=== PATIENT | male | born 1940 | race Caucasian/White ===

== ENCOUNTER 2021-08-16 07:13 | Outpatient (CLI) | payer OTHER, SELFPAY ==
--- NOTE | 2021-08-16 | ECHO_ITS ---
Patient Info Name: Sanket Wick Age: 80 years : 1940 Gender: Male Ht: 74 in Wt: 200 lbs BSA: 2.18 m2 HR: 52 bpm BP: 147 / 90 mmHg Exam Date: 08/16/2021 8:16 AM [facility] Patient Status: Outpatient Admit Date: 08/16/2021 Staff Ordering Physician: Dougie, Marquis Hall MD Correctional Medicine Physician: RASHID Attending Provider: Dougie, Marquis Hall MD Referring Physician: Dougie CALERO; Exam Type: CA echo doppler color flow Study Info Indications I35.0 - Nonrheumatic aortic (valve) stenosis Complete two-dimensional, color flow and Doppler transthoracic echocardiogram is performed. Summary 1. Complete two-dimensional, color flow and Doppler transthoracic echocardiogram is performed. 2. Borderline LV enlargement, moderate LVH, normal LV systolic function, ejection fraction calculated at 60%. Grade 1 diastolic dysfunction. Mild left atrial enlargement. Dense posterior mitral annular calcification, trivial MR, mild mitral stenosis. Calcified aortic valve with restricted leaflet mobility. Severe aortic stenosis with calculated aortic valve area 0.8 cm2; maximum velocity 4 m/sec, peak gradient 66 mmHg, mean gradient 36 mmHg. Unable to assess RVSP due to inadequate TR jet. Sinus bradycardia. Left Ventricle Left ventricular chamber dimension is normal. Left ventricular systolic function is normal, estimated at 55-60%. There is moderately increased left ventricular wall thickness. The left ventricular diastolic function is grade I diastolic dysfunction. Right Ventricle Right ventricular chamber dimension is normal. Right ventricular systolic function is normal. Left Atria Left atrial chamber dimension is mildly enlarged. Right Atria Right atrial chamber dimension is normal. Aortic Valve There is severe aortic valve stenosis with a peak velocity of 417 cm/s, mean gradient of 36 mmHg, and aortic valve area of 0.7 cm2. There is moderate aortic valve calcification. Pulmonic Valve The pulmonic valve is normal. Mitral Valve There is mild mitral valve stenosis. There is trace mitral valve regurgitation. The mitral valve annulus is moderately calcified. Tricuspid Valve The tricuspid valve leaflets are normal. There is trace tricuspid valve regurgitation. Pericardium/Pleural The pericardium appears normal. Inferior Vena Cava Dilated inferior vena cava with >50% collapse upon inspiration consistent with normal right atrial pressure, 10 mmHg. Aorta The aortic root size at the sinus of Valsalva is not well visualized. Left Ventricular Outflow Tract Name Value Normal LVOT 2D LVOT Diameter 1.8 cm LVOT Doppler LVOT Peak Gradient 7 mmHg LVOT Mean Gradient 2 mmHg LVOT VTI 29 cm LVOT VTI/AV VTI Ratio 0.3 LVOT Stroke Volume 76 ml LVOT CO 10.9 l/min LVOT CI 5.0 l/min/m2 Mitral Valve Name
== END 2021-08-16 07:14 | disposition home or self-care (01) ==
LOC: ANHCARD 07:15
PROVIDERS: PCP Internal Medicine; Visit Provider Internal Medicine
DX: I35.0 Nonrheumatic aortic (valve) stenosis (principal); I05.0 Rheumatic mitral stenosis
CPT/HCPCS: 93306

== ENCOUNTER 2023-04-26 15:56 | Emergency (ER) | payer OTHER, SELFPAY ==
[2023-04-26 15:59] VITALS: BP 118/69; PULSE 69; RESP 18; TEMP 36.5; O2SAT 100
[2023-04-26 16:46] LABS: Eosinophils Percent Auto 0.2 % (0-4.4); Hemoglobin 8.9 g/dL (14.0-18.0); Immature Granulocyte Absolute 0.07 K/mm3 (0.00-0.031); Immature Granulocyte Percent A 1.2 % (0-0.5); Immature Platelet Fraction Pct 12.4 % (0.9-11.2); Lymphocytes Absolute Auto 1.65 K/mm3 (0.9-3.2); Lymphocytes Percent Auto 28.5 % (18.3-44.2); Mean Corpuscular HGB Conc 34.2 g/dl (32-36); Mean Corpuscular Hemoglobin 32.5 pg (26-34); Mean Corpuscular Volume 94.9 fl (80-100); Monocytes Absolute Auto 1.1 K/mm3 (0.1-0.6); Monocytes Percent Auto 18.7 % (2.6-8.5); Neutrophils Percent Auto 51.4 % (45.5-73.1); Platelet Count Result 59 k/mm3 (150-375); Red Blood Count 2.74 M/mm3 (4.6-6.20); White Blood Count 5.8 K/mm3 (4.5-10.0)
[2023-04-26 16:53] LABS: Alanine Aminotransferase 28 U/L (6-50); Albumin Level 3.9 g/dL (3.5-5.1); Alkaline Phosphatase 39 U/L (38-126); Anion Gap 5 mmol/L (8-16); Aspartate Amino Transferase 44 U/L (17-59); Bilirubin,Total 1.3 mg/dL (0.2-1.3); Blood Urea Nitrogen 16 mg/dL (9-20); Calcium 8.8 mg/dL (8.4-10.2); Carbon Dioxide 29 mmol/L (22-30); Chloride 98 mmol/L (98-107); Estimated CRCL calculation 78 ml/min; Estimated Glomerular Filt Rate > 60; Glucose 106 mg/dL (65-110); Potassium 3.8 mmol/L (3.4-5.0); Sodium 132 mmol/L (137-145)
[2023-04-26 17:08] LABS: Platelet Estimate Decreased (Adequate); Poikilocytosis 2+ (NORMAL)
[2023-04-26 17:09] LABS: Acanthocytes 1+ (NORMAL); Burr Cells 1+ (NORMAL); Schistocytes Rare (NORMAL)
[2023-04-26 17:10] LABS: Ovalocytes 2+ (NORMAL)
--- NOTE | 2023-04-26 17:51 | ED.DENTAL ---
HPI - Dental/Oral General Chief complaint: Dental/Oral Stated complaint: dental pain Time Seen by Provider: 04/26/23 17:28 Source: patient and family Mode of arrival: ambulatory Limitations: no limitations History of Present Illness HPI Narrative: 82 years old white male presented to the ED with left lower dental pain that started over 1 week ago. Was seen by a dentist, and had pulled tooth 5 days ago, started on amoxicillin 4 days ago. Then was referred to see an oral surgeon who requested to have CAT scan first before seeing him, patient went to [facility] yesterday but because of the long waiting decided to leave and came to us today instead. Patient's family physician declined to order CT scan, the dentist declined to do the same and the oral surgeon who did not see the patient requested CT scan of the teeth. Related Data Allergies Allergy/AdvReac Type Severity Reaction Status Date / Time Sulfa (Sulfonamide AdvReac Nausea and Verified 04/26/23 16:58 Antibiotics) Vomiting PMFSH Family History Family History Mother Family history of malignant neoplasm of uterus Sibling Family history of malignant neoplasm of esophagus Social History Social History Alcohol intake: current Exam Narrative: General appearance: Well-developed, well-nourished Skin: Normal color Head: Normocephalic, nontraumatic Eyes: Clear conjunctiva ENT: Widespread dental decay of the teeth mainly left lower side, no abscess formation, no discharge diffusely tender Neck: Supple, nontender Chest and respiratory: Airway patent, no respiratory distress, no accessory muscle use Heart: Regular rate/rhythm Neurologic: Alert and oriented ?3, [employer] is normal as tested, no gross motor deficit Course Vital Signs Vital signs: Vital Signs Temperature 36.5 C 04/26/23 15:59 Pulse Rate 69 04/26/23 15:59 Respiratory Rate 18 04/26/23 15:59 Blood Pressure 118/69 04/26/23 15:59 Pulse Oximetry 100 04/26/23 15:59 Oxygen Delivery Room Air 04/26/23 15:59 Temperature 36.5 C 04/26/23 15:59 Pulse Rate 69 04/26/23 15:59 Respiratory Rate 18 04/26/23 15:59 Blood Pressure 118/69 04/26/23 15:59 Pulse Oximetry 100 04/26/23 15:59 Oxygen Delivery Room Air 04/26/23 15:59 MDM - Dental/Oral MDM Narrative Medical decision making narrative: Patient presents with left lower dental pain, physical examination showed widespread decay mainly left lower gum, no abscess formation at this time,. Patient does not have any fever, chills, nausea, vomiting, headache, imaging is not required at this time. Patient was started on amoxicillin 4 days ago. My plan to discontinue amoxicillin and start the patient on clindamycin and the Flagyl to be seen by his dentist again in 3 to 5 days.. Differential Diagnosis Differential diagnosis: Likely dental caries, toothache and dental abscess Lab Data 04/26/23 16:37 04/26/23 16:37 Labs: Lab Results 04/26/23 Range/Units 16:37 WBC 5.8 (4.5-10.0) K/mm3 RBC 2.74 L (4.6-6.20) M/mm3 Hgb 8.9 L (14.0-18.0) g/dL Hct 26.0 L (42.0-52.0) % MCV 94.9 (80-100) fl MCH 32.5 (26-34) pg MCHC 34.2 (32-36) g/dl RDW 19.0 H (11.5-14.5) % Plt Count 59 L (150-375) k/mm3 MPV Not Reportable Immature Gran % (Auto) 1.2 H (0-0.5) % Neut % (Auto) 51.4 (45.5-73.1) % Lymph % (Auto) 28.5 (18.3-44.2) % [place] % (Auto) 18.7 H (2.6-8.5) % Eos % (Auto) 0.2 (0-4.4) % Baso % (Auto) 0.0 L (0.2-1.2) % Lymph # (Auto) 1.65 (0.9-3.2) K/mm3 [place] # (Auto)
== END 2023-04-26 18:11 | disposition home or self-care (01) ==
PROVIDERS: Emergency Provider Emergency Medicine; PCP Internal Medicine
DX: K02.9 Dental caries, unspecified (principal)
CPT/HCPCS: 36415; 80053; 85025; 85055; 99283

== ENCOUNTER 2024-06-24 20:59 | Inpatient (IN) | payer OTHER, SELFPAY ==
[2024-06-24] VITALS (32 sets, daily range): BP systolic 76–101; BP diastolic 50–71; PULSE 75–155; RESP 12–21; TEMP 36.4; O2SAT 99–100
--- NOTE | ~2024-06-24 | XR_ITS ---
EXAMINATION: XR chest 1V portable DATE: 06/24/2024 21:27 INDICATION: Chest pain and shortness of breath TECHNIQUE: frontal view of the chest was obtained. COMPARISON: None FINDINGS: Small calcified nodules at the lateral left lower lung zone consistent with old granulomatous disease . No other airspace opacities, pulmonary edema, pleural effusion or pneumothorax. The cardiomediastin al silhouette is normal. Moderate scattered degenerative skeletal changes in the spine and at the memo ateral shoulders. IMPRESSION: 1. No acute cardiopulmonary disease. Reviewed, dictated and finalized at location A.
--- NOTE | ~2024-06-24 | XR_ITS ---
EXAMINATION: XR elbow LT min 3V DATE: 06/24/2024 21:27 INDICATION: Left elbow injury post fall TECHNIQUE: Anteroposterior, oblique and lateral views of the left elbow were obtained. COMPARISON: None. FINDINGS: Alignment is normal. No fracture. Mild osteoarthritis at the left elbow. No elbow joint effusion david tasneem calcaneus in the left forearm. Soft tissues are otherwise unremarkable. IMPRESSION: 1. Mild left elbow osteoarthritis. No joint effusion or acute osseous abnormality. Reviewed, dictated and finalized at location A. IMPRESSION: 1. Mild left elbow osteoarthritis. No joint effusion or acute osseous abnormali ty.
--- NOTE | 2024-06-24 21:06 | ECG_ITS ---
Test Date: 2024-06-24 21:01:32 Measurements Intervals [place] Rate: 160 P: 0 [place]: 0 QRS: -32 QRSD: 172 T: 106 QT: 280 QTc: 458 Interpretive Statements ATRIAL FIBRILLATION WITH RAPID VENTRICULAR RESPONSE MARKED LEFT AXIS DEVIATION [QRS AXIS < -30] LEFT BUNDLE BRANCH BLOCK [120+ ms QRS DURATION, 80+ ms Q/S IN V1/V2, 85+ ms R IN I/aVL/V5/V6] No previous ECG available for comparison Electronically Signed On 06-25-2024 15:53:00 CDT by Maria Guadalupe Jacobsen M.D.
[2024-06-24] MEDS: AMIODARONE 150 MG/D5W 100 ML 150 MG/100 ML BAG 600 MG IV CONT (21:10)
[2024-06-24 21:16] LABS: Basophils Percent Auto 0.2 % (0.2-1.2); Hematocrit 28.4 % (42.0-52.0); Hemoglobin 9.5 g/dL (14.0-18.0); Immature Granulocyte Absolute 0.22 K/mm3 (0.00-0.031); Immature Granulocyte Percent A 1.8 % (0-0.5); Immature Platelet Fraction Pct 14.2 % (0.9-11.2); Lymphocytes Absolute Auto 1.59 K/mm3 (0.9-3.2); Lymphocytes Percent Auto 13.1 % (18.3-44.2); Mean Corpuscular HGB Conc 33.5 g/dl (32-36); Mean Corpuscular Hemoglobin 30.9 pg (26-34); Mean Corpuscular Volume 92.5 fl (80-100); Monocytes Absolute Auto 2.2 K/mm3 (0.1-0.6); Monocytes Percent Auto 18.4 % (2.6-8.5); Neutrophils Absolute Auto 8.1 K/mm3 (1.3-6.7); Neutrophils Percent Auto 66.5 % (45.5-73.1); Nucleated Red Blood Cells Perc 0.4 % (0.0-0.2); Platelet Count Result 42 k/mm3 (150-375); Red Blood Count 3.07 M/mm3 (4.6-6.20); Red Cell Distribution Width 19.6 % (11.5-14.5); White Blood Count 12.1 K/mm3 (4.5-10.0)
[2024-06-24] MEDS: AMIODARONE 360 MG/D5W 200 ML 360 MG/200 ML BAG 33.33 MG IV CONT (21:16)
[2024-06-24 21:31] LABS: Albumin Level 3.9 g/dL (3.5-5.1); Alkaline Phosphatase 52 U/L (38-126); Anion Gap 18 mmol/L (4-12); Aspartate Amino Transferase 65 U/L (17-59); Bilirubin,Total 3.1 mg/dL (0.2-1.3); Blood Urea Nitrogen 11 mg/dL (9-20); Calcium 8.6 mg/dL (8.4-10.2); Carbon Dioxide 14 mmol/L (22-30); Chloride 92 mmol/L (98-107); Estimated CRCL calculation 79 ml/min; Estimated Glomerular Filt Rate > 60; Glucose 216 mg/dL (65-110); INR 1.1; Lipase 119 U/L (23-300); Potassium 3.6 mmol/L (3.4-5.0); Prothrombin Time 14.4 Seconds (11.1-14.7); Sodium 124 mmol/L (137-145)
[2024-06-24 21:32] LABS: Partial Thromboplastin Time 34.4 Seconds (22.3-36.8)
[2024-06-24] MEDS: SODIUM CHLORIDE 0.9% IV 1,000 ML 999 ML IV CONT (21:32)
[2024-06-24 21:35] LABS: Ovalocytes 1+; Platelet Estimate Decreased (Adequate); Poikilocytosis 1+
[2024-06-24 21:36] LABS: Schistocytes Rare
[2024-06-24 21:38] LABS: Alanine Aminotransferase 22 U/L (6-50)
--- NOTE | 2024-06-24 21:52 | ECG_ITS ---
Test Date: 2024-06-24 21:36:58 Measurements Intervals [place] Rate: 119 P: 0 NM: 0 QRS: 26 QRSD: 129 T: 151 QT: 349 QTc: 492 Interpretive Statements ATRIAL FIBRILLATION WITH RAPID VENTRICULAR RESPONSE WITH ABERRANT CONDUCTION OR VENTRICULAR PREMATURE COMPLEXES LEFT BUNDLE BRANCH BLOCK [120+ ms QRS DURATION, 80+ ms Q/S IN V1/V2, 85+ ms R IN I/aVL/V5/V6] Compared to ECG 06/24/2024 21:01:32 NO SIGNIFICANT CHANGES Electronically Signed On 06-25-2024 15:53:36 CDT by Maria Guadaulpe Jacobsen M.D.
--- NOTE | 2024-06-24 21:54 | ECG_ITS ---
Test Date: 2024-06-24 21:54:22 Measurements Intervals [place] Rate: 82 P: 54 NV: 155 QRS: 38 QRSD: 117 T: 61 QT: 418 QTc: 488 Interpretive Statements SINUS RHYTHM MODERATE INTRAVENTRICULAR CONDUCTION DELAY [110+ ms QRS DURATION] MARKED ST DEPRESSION, CONSIDER SUBENDOCARDIAL INJURY [0.2+ mV ST DEPRESSION] Compared to ECG 06/24/2024 21:36:58 SINUS RHYTHM NOW PRESENT Electronically Signed On 06-25-2024 15:54:25 CDT by Maria Guadalupe Jacobsen M.D.
[2024-06-24 22:45] LABS: NT Pro B Type Natriuretic Pept 3100 pg/mL (19.9-100); Troponin I 0.112 ng/mL (0.000-0.034)
--- NOTE | 2024-06-24 23:32 | ED.GENADULT ---
HPI - General Adult General Chief complaint: Fall Stated complaint: STEMI DECLARED IN FIELD, FALL, SOB Time Seen by Provider: 06/24/24 21:02 History of Present Illness HPI narrative: patient 83-year-old gentleman who presents emergency department with chief we for the complaint of shortness of breath. The patient reports he has history of atrial fibrillation and reports he also has history of aortic insufficiency is supposed to have a TAVR replacement the patient reports that he was walking up the steps got short of breath and fell as he got to the top of the stairs the patient states he felt very short of breath EMS was called and found the patient to be tachycardic and they declared the patient has a ST-elevation TX and transported the emergency department. Related Data Allergies Allergy/AdvReac Type Severity Reaction Status Date / Time Sulfa (Sulfonamide AdvReac Nausea and Verified 04/26/23 16:58 Antibiotics) Vomiting Review of Systems Review of Systems: A 10 system review of systems was completed on the patient and is negative except for what is stated in the HPI. Nursing and ancillary documentation was reviewed. [facility] Family History Family History Mother Family history of malignant neoplasm of uterus Sibling Family history of malignant neoplasm of esophagus Social History Social History Alcohol intake: current Exam Narrative: GENERAL: Well-appearing, well-nourished, and in no acute distress. HEAD: Normocephalic, atraumatic. EYES: PERRLA and EOMI. ENT: Nares clear, no rhinorrhea or epistaxis. Mucous membranes moist. NECK: Supple. CHEST: Clear to auscultation. No respiratory distress. HEART: Tachycardic irregular rate and rhythm. No murmur heard. Normal peripheral pulses. ABDOMEN: Soft, nontender, nondistended, normal active bowel sounds. EXTREMITIES: Normal range of motion. No edema. SKIN: Warm, dry, no rash. NEURO: No focal deficits. Alert and oriented x3. PSYCH: Normal mood and affect. Course Vital Signs Vital signs: Vital Signs Temperature 36.4 C L 06/24/24 20:51 Pulse Rate 152 H 06/24/24 20:51 Respiratory Rate 16 06/24/24 20:51 Blood Pressure 90/64 L 06/24/24 20:51 Pulse Oximetry 100 06/24/24 20:51 Oxygen Delivery Room Air 06/24/24 20:51 Temperature 36.4 C L 06/24/24 20:51 Pulse Rate 83 06/24/24 21:47 Respiratory Rate 16 06/24/24 21:47 Blood Pressure 90/65 L 06/24/24 21:47 Pulse Oximetry 100 06/24/24 21:47 Oxygen Delivery Room Air 06/24/24 20:51 Medical Decision Making MDM Narrative Medical decision making narrative: differential diagnosis includes STEMI, dysrhythmia, electrolyte abnormality, CHF, EKG showed atrial fibrillation with rapid ventricular response with a underlying left bundle branch block. Patient was somewhat low on blood pressure upon initial arrival of the dysrhythmic of choice that time was amiodarone. The case was discussed with cardiology who agreed that this was not an ST-elevation TX and that the patient should be treated with anti dysrhythmic. The patient was started on an amiodarone drip and converted back into sinus rhythm Vital Signs Vital Signs: Vital Signs Temperature 36.4 C L 06/24/24 20:51 Pulse Rate 152 H 06/24/24 20:51 Respiratory Rate 16 06/24/24 20:51 Blood Pressure 90/64 L 06/24/24 20:51 Pulse Oximetry 100 06/24/24 20:51 Oxygen Delivery Room Air 06/24/24 20:51 Temperature 36.4 C L 06/24/24 20:51 Pulse Rate 83 06/24/24 21:47 Respiratory Rate 16 06/24/24 21:47 Blood Pressure 90/65 L 06/24/24 21:47 Pulse Oximetry 100 06/24/24 21:47 Oxygen Delivery Room Air 06/24/24 20:51 Lab Data 06/24/24 21:09 06/24/24 21:09 Labs: Lab Results 06/24/24 Range/Units 21:09 WBC 12.1 H (4.5-10
[2024-06-24] MEDS: HEPARIN SODIUM 5,000 UNITS/ML VIAL 4000 UNITS IV PUSH (23:36)
[2024-06-24] MEDS: HEPARIN SOD/D5W 100 UNITS/ML 25,000 UNITS/250 ML BAG 10 UNITS IV CONT (23:43)
[2024-06-25] VITALS (20 sets, daily range): BP systolic 88–113; BP diastolic 57–70; PULSE 67–80; RESP 15–20; TEMP 36.3–37.1; O2SAT 91–100
--- NOTE | 2024-06-25 | ECHO_ITS ---
Patient Info Name: Sanket Wick Age: 83 years : 1940 Gender: Male Ht: 74 in Wt: 205 lbs BSA: 2.21 m2 HR: 76 bpm BP: 98 / 65 mmHg Heart Rhythm: Sinus Rhythm Technical Quality: Poor Exam Date: 06/25/2024 12:20 PM Exam Location: Echo Lab Patient Status: Inpatient Admit Date: 06/25/2024 Staff Ordering Physician: Luis Welsh MD It Network Architect: Ella Rebollar RDCS Attending Provider: Nhung Roth DO Referring Physician: Anitha SAXENA; Exam Type: CA echo dop color flow w con Study Info Indications I35.0 - Nonrheumatic aortic (valve) stenosis - ACS Complete two-dimensional, color flow and Doppler transthoracic echocardiogram is performed with contrast to opacify the left ventricle and to improve the deliniation of the left ventricle endocardial borders. Contrast/Agitated Saline Contrast/Ag. Saline: Definity Amount: 2.00 ml Reason for Poor Study: poor echocardiographic windows Summary 1. Technically difficult study with limited views. 2. Left ventricular chamber dimension is normal. 3. Left ventricular systolic function is normal, estimated at 35-40%. There is global hypokinesis with more pronounced hypokinesis of the anterior and anterolateral durna. 4. There is mildly increased left ventricular wall thickness. 5. Right ventricular systolic function is normal. 6. Left atrial chamber dimension is moderately enlarged. 7. There is severe aortic valve calcification. 8. There is severe aortic valve stenosis with a peak velocity of 423.35 cm/s, mean gradient of 12 mmHg, and aortic valve area of 0.58 cm2. 9. There is moderate mitral valve regurgitation. 10. There is mild to moderate tricuspid valve regurgitation. Left Ventricle Left ventricular chamber dimension is normal. Left ventricular systolic function is normal, estimated at 35-40%. There is global hypokinesis with more pronounced hypokinesis of the anterior and anterolateral duran. There is mildly increased left ventricular wall thickness. Right Ventricle Right ventricular chamber dimension is normal. Right ventricular systolic function is normal. Left Atria Left atrial chamber dimension is moderately enlarged. Right Atria Right atrial chamber dimension is normal. Atrial Septum Intact interatrial septum visualized by color flow imaging. Aortic Valve There is severe aortic valve stenosis with a peak velocity of 423.35 cm/s, mean gradient of 12 mmHg, and aortic valve area of 0.58 cm2. There is no aortic valve regurgitation. There is severe aortic valve calcification. Pulmonic Valve There is trace pulmonic regurgitation. Mitral Valve The mitral valve has thickened leaflets. There is moderate mitral valve regurgitation. The mitral valve annulus is severely calcified. Tricuspid Valve There is mild to moderate tricuspid valve regurgitation. Pericardium/Pleural There is no pericardial effusion. Inferior Vena Cava Inferior vena cava is not well visualized. Aorta The aortic root size at the sinus of Valsalva is normal. Left Ventricular Outflow Tract Name Value Normal LVOT 2D LVOT Diameter 2.11 cm LVOT Doppler LVOT Peak Gradient 1 mmHg LVOT Mean
--- NOTE | 2024-06-25 00:09 | ECG_ITS ---
Test Date: 2024-06-25 00:52:24 Measurements Intervals [place] Rate: 74 P: 49 [place]: 165 QRS: 41 QRSD: 113 T: 61 QT: 443 QTc: 492 Interpretive Statements SINUS RHYTHM MODERATE INTRAVENTRICULAR CONDUCTION DELAY [110+ ms QRS DURATION] MODERATE ST DEPRESSION [0.05+ mV ST DEPRESSION] PROLONGED QT INTERVAL Compared to ECG 06/24/2024 21:54:22 ST DEPRESSIONS HAVE IMPROVED Electronically Signed On 06-25-2024 15:58:28 CDT by Maria Guadalupe Jacobsen M.D.
--- NOTE | 2024-06-25 01:15 | ADMGEN ---
This patient, Sanket Wick, was admitted to IMU Room 205-02. Patient/family oriented to hospital policies and general routines including ID bracelet, bed and alarms, visiting hours, pain management, procedures, bathroom and other care routines, personal items, smoking policy, room service/diet, and visiting hours. Information on how to activate the Rapid Response Team has been discussed. Patient/Family are encouraged to report perceived risks to care and to ask questions if they do not understand what they are told or what they should do. Patient arrived to the unit at 0116.
[2024-06-25] MEDS: AMIODARONE 360 MG/D5W 200 ML 360 MG/200 ML BAG 16.67 MG IV CONT ×2 (02:09→10:37)
[2024-06-25 05:24] LABS: Hematocrit 25.2 % (42.0-52.0); Hemoglobin 8.5 g/dL (14.0-18.0); Immature Granulocyte Absolute 0.09 K/mm3 (0.00-0.031); Immature Granulocyte Percent A 1.1 % (0-0.5); Immature Platelet Fraction Pct 15.9 % (0.9-11.2); Lymphocytes Absolute Auto 1.13 K/mm3 (0.9-3.2); Mean Corpuscular HGB Conc 33.7 g/dl (32-36); Mean Corpuscular Hemoglobin 31.7 pg (26-34); Monocytes Absolute Auto 1.7 K/mm3 (0.1-0.6); Monocytes Percent Auto 20.6 % (2.6-8.5); Neutrophils Absolute Auto 5.2 K/mm3 (1.3-6.7); Neutrophils Percent Auto 64.3 % (45.5-73.1); Platelet Count Result 38 k/mm3 (150-375); Red Blood Count 2.68 M/mm3 (4.6-6.20); Red Cell Distribution Width 19.7 % (11.5-14.5); White Blood Count 8.1 K/mm3 (4.5-10.0)
[2024-06-25 05:39] LABS: Partial Thromboplastin Time 118.2 Seconds (22.3-36.8)
[2024-06-25 05:47] LABS: Ovalocytes 1+; Platelet Estimate Decreased (Adequate); Schistocytes None Seen
[2024-06-25 06:45] LABS: Add Urine Microscopic? YES; Appearance Urine Clear (Clear); Bacteria Urine None Seen /hpf; Bilirubin Urine Negative (Negative); Blood Urine Negative (Negative); Color Urine Yellow (Yellow); Glucose Urine UA Negative (Negative); Ketones Urine Negative (Negative); Leukocyte Esterase Ur Negative LEU/UL (Negative); Need Manual Microscopic Reviewed; Nitrate Urine Negative (Negative); Protein Urine 1+ mg/dL (Negative); RBC Urine 0-2 /hpf (0-2); Specific Grav Ur 1.022 (1.001-1.035); Squamous Epithelial Cell Urine Occasional /hpf (Few); WBC Urine 0-5 /hpf (0-3); pH Urine 5.5 (5.0-9.0)
[2024-06-25] MEDS: CARBIDOPA/LEVODOPA 10/100 MG TABLET 1 TABLET PO ×3 (09:56→16:57)
[2024-06-25] MEDS: NEBIVOLOL HCL 5 MG TABLET 10 MG PO (09:56)
--- NOTE | 2024-06-25 11:26 | PM.CNCAR ---
Assessment and Plan Assessment and plan (1) Atrial fibrillation with rapid ventricular response: Code(s): I48.91 - Unspecified atrial fibrillation Status: Acute Assessment and Plan: Patient had atrial fibrillation with rapid ventricular response and corresponding wide QRS consistent with left bundle-branch block. Certainly could be a rate dependent left bundle branch block as heart rate did decrease, QRS complex did narrow. However, left bundle-branch block is likely in part attributed to some degree of ischemia either from underlying CAD or from heart rate in and of itself. Currently in sinus rhythm. Will DC IV amiodarone. 2D echocardiogram with Doppler will be ordered and reviewed. Potassium is low normal and replace with 40 mEq KCL p.o. x1. Start oral amiodarone at 200 mg p.o. b.i.d. (2) Aortic stenosis: Code(s): I35.0 - Nonrheumatic aortic (valve) stenosis Status: Acute Assessment and Plan: Sounds to be severe. Echo pending (3) Elevated troponin: Code(s): R79.89 - Other specified abnormal findings of blood chemistry Status: Acute Assessment and Plan: Significant elevation of troponin. ACS in the setting of atrial fibrillation with rapid ventricular response, left bundle-branch block and subsequent EKG with more narrow QRS complexes showing significant ST segment depressions consistent with subendocardial injury. Follow-up EKG today does show improvement of ST segment depressions but troponins are significantly elevated. Continue heparin. Will discuss with Interventional Cardiology about proceeding on with catheterization here versus transferring to tertiary care facility given his underlying aortic stenosis. Will initiate atorvastatin 40 mg daily. He is anemic but will start him on aspirin 81 mg p.o. daily and follow hemoglobin. (4) Fall: Code(s): W19.XXXA - Unspecified fall, initial encounter Status: Acute Assessment and Plan: Likely secondary to hypotension, AFib with RVR with underlying History of Present Illness History of Present Illness Consult date/time: 06/25/24 11:26 Requesting physician: Chico Ramos MD Reason For Visit: STEMI DECLARED IN FIELD, FALL, SOB Narrative: Reason for consultation: Elevated troponin Date of service: 06/25/2024 Requesting provider: Dr. Ramos History: Patient is an 83-year-old male who has a history of aortic stenosis in follows with Dr. Weber at [facility]. It sounds as if he is soon to have a TAVR. He when at had a couple beers yesterday and laid down. Upon getting up he started climb of 13 steps and felt very short of breath, very weak and he fell. He does not think that he lost consciousness but did nearly lose consciousness. He also had some chest discomfort which gradually became very severe by the time he got to the emergency department. He did have palpitations at the time. He was declared a STEMI in the field but according documentation, the ER physician discussed with Cardiology (who was not me) and decided that the patient was in fact not a ST-elevation myocardial infarction. Patient was in atrial fibrillation with rapid ventricular response and left bundle branch block. As heart rate decline, his QRS complex did narrow but this did leave significant ST segment depressions anterolaterally which have since essentially normalized. Troponins were minimally elevated at 1st and have risen to a level of 22.8. Patient currently feels much better and is not having any chest pain. States that he feels weak but overall no significant shortness of breath, paroxysmal nocturnal dyspnea, orthopnea, edema, palpitations. Yesterday at the time of his episode, he did feel palpitations. Review of Systems Review of Systems: All systems reviewed & are unremarkable except as noted in HPI and below Constitutional: Constitutional: Denies body ache(s) Eyes: Eyes: Denies blurry vision
[2024-06-25 11:52] LABS: Partial Thromboplastin Time 99.8 Seconds (22.3-36.8)
[2024-06-25] MEDS: HEPARIN SOD/D5W 100 UNITS/ML 25,000 UNITS/250 ML BAG 8 UNITS IV CONT (11:54)
[2024-06-25] MEDS: POTASSIUM CHLORIDE 20 MEQ ER TABLET 40 MEQ PO (12:09)
--- NOTE | 2024-06-25 13:14 | PM.CNCAR ---
History of Present Illness History of Present Illness Consult date/time: 06/25/24 13:14 Requesting physician: Otto Celis MD Consult reason: Other (NSTEMI, Shock ) Reason For Visit: Chest Pain Narrative: Reason for consult: NSTEMI aSnket Wick is an 83 year old male with the following history: 1. Coronary artery disease. S/p 4V CABG 12/2022 at [facility]. S/p PCI of SVG-RCA bypass graft 01/18/2024. S/p PCI to LCX-OM2 with two overlapping JESSENIA and PCI to LM-LAD with EJSSENIA on 02/01/2024. 2. Peripheral vascular disease 3. Chronic kidney disease 4. COPD 5. Carotid artery disease s/p L CEA 2011 6. Hypertension 7. Hyperlipidemia 8. Type 2 diabetes mellitus 9. Hypothyroidism Sanket was just seen yesterday at the [facility] on 06/24/2024 [facility] Past Medical History Medical History (Updated 06/25/24 @ 11:36 by Luis Welsh MD) Aortic stenosis Basal cell carcinoma of right ear Family History Family History Mother Family history of malignant neoplasm of uterus Sibling Family history of malignant neoplasm of esophagus Social History Social History Smoking status: Current every day smoker Tobacco type: cigars Additional smoking assessment comments: 1 cigar per day Alcohol intake: current Drinks per week: 14 Substance use: never Substance use type: does not use Do You Feel Safe in your Home?: Yes Lack of Transportation: No Lack of Food: Never True Current Housing: I Have Housing Concerned About Future Housing: No Difficulty Paying Gas/Electric Bills: No Difficulty Paying for Meds: No Currently Unemployed: No Education: Master's Degree or Higher Difficulty w/ Childcare or Family Care: No Spiritual care concerns: No Meds Home Medications and Allergies Home Medications Medication Instructions Recorded Confirmed Type carbidopa 10 mg-levodopa 100 mg 1 tablet PO TID 06/25/24 06/25/24 History tablet donepezil 5 mg tablet 5 mg PO DAILY 06/25/24 06/25/24 History linaclotide 290 mcg capsule 290 mcg PO DAILY 06/25/24 06/25/24 History (Linzess) nebivolol 10 mg tablet 10 mg PO DAILY 06/25/24 06/25/24 History Allergies Allergy/AdvReac Type Severity Reaction Status Date / Time Sulfa (Sulfonamide AdvReac Nausea and Verified 06/25/24 00:50 Antibiotics) Vomiting Vital Signs Vital Signs - 24 hr 06/24/24 20:51 06/24/24 21:10 06/24/24 21:16 Temperature 36.4 C L Pulse Rate 152 H 155 H 122 H Respiratory Rate 16 Blood Pressure 90/64 L 93/70 L 86/68 L Pulse Oximetry 100 Oxygen Delivery Room Air Oxygen Flow Rate 06/24/24 21:39 06/24/24 21:21 06/24/24 21:18 Temperature Pulse Rate 132 H 124 H 120 H Respiratory Rate 16 17 Blood Pressure 92/68 L 86/68 L 87/67 L Pulse Oximetry 100 100 Oxygen Delivery Oxygen Flow Rate 06/24/24 21:19 06/24/24 21:26 06/24/24 21:28 Temperature Pulse Rate 128 H 121 H 116 H Respiratory Rate 21 H 20 15 Blood Pressure 76/61 L 83/67 L Pulse Oximetry 100 99 100 Oxygen Delivery Oxygen Flow Rate 06/24/24 21:29 06/24/24 21:30 06/24/24 21:31 Temperature Pulse Rate 119 H 101 H 118 H Respiratory Rate 20 21 H 21 H Blood Pressure 91/67 L Pulse Oximetry 100 100 100 Oxygen Delivery Oxygen Flow Rate 06/24/24 21:45 06/24/24 21:46 06/24/24 21:47 Temperature Pulse Rate 93 84 83 Respiratory Rate 21 H 16 16 Blood Pressure 91/50 L 90/65 L Pulse Oximetry 100 99 100 Oxygen Delivery Oxygen Flow Rate 06/24/24 21:48 06/24/24 22:00 06/24/24 22:01 Temperature Pulse Rate 83 86 85 Respiratory Rate 12 21 H 15 Blood Pressure 101/64 Pulse Oximetry 100 99 Oxygen Delivery Oxygen Flow Rate 06/24/24 22:15 06/24/24 22:16 06/24/24 22:30 Temperature Pulse Rate 84 83 83 Respiratory Rate 19 19 14 Blood Pressure 97/66 L 98/
--- NOTE | 2024-06-25 13:38 | PM.IMHP ---
H&P: HPI History of Present Illness Date/Time: 06/25/24 13:38 Chief Complaint: Shortness of breath Narrative: ER-HPI narrative: patient 83-year-old gentleman who presents emergency department with chief we for the complaint of shortness of breath. The patient reports he has history of atrial fibrillation and reports he also has history of aortic insufficiency is supposed to have a TAVR replacement the patient reports that he was walking up the steps got short of breath and fell as he got to the top of the stairs the patient states he felt very short of breath EMS was called and found the patient to be tachycardic and they declared the patient has a ST-elevation VT and transported the emergency department. Cardiology was called from ER, and the mineralogy professor did not suspect ST-elevation, patient initial trope 0.112, 8.030, 22.800, 22.800, mineralogy professor is consulted and further recommendation to follow. Review of Systems Review of Systems: All systems reviewed & are unremarkable except as noted in HPI and below Constitutional: Constitutional: Denies body ache(s) Eyes: Eyes: Denies blurry vision ENT: Reports Normal hearing present Cardiovascular: Cardiovascular: Reports chest pain, Denies pedal edema, Reports lightheadedness and Reports palpitations Respiratory: Respiratory: Reports dyspnea Gastrointestinal: Gastrointestinal: Denies abdominal pain Genitourinary: Genitourinary: Denies hematuria Musculoskeletal: Musculoskeletal: Denies back pain Integumentary/Breasts: Skin/Breast: Denies dry skin Neurologic: Denies Abnormal speech present Psychiatric: Psychiatric: Denies anxiety Endocrine: Endocrine: Denies excessive sweating Hematologic/Lymphatic: Hematologic/Lymphatic: Denies easy bleeding Allergic/Immunologic: Allergic/Immunologic: Denies GI upset with certain foods PMFSH Past Medical History Medical History (Updated 06/25/24 @ 11:36 by Luis Welsh MD) Aortic stenosis Basal cell carcinoma of right ear Family History Family History Mother Family history of malignant neoplasm of uterus Sibling Family history of malignant neoplasm of esophagus Social History Social History Smoking status: Current every day smoker Tobacco type: cigars Additional smoking assessment comments: 1 cigar per day Alcohol intake: current Drinks per week: 14 Substance use: never Substance use type: does not use Do You Feel Safe in your Home?: Yes Lack of Transportation: No Lack of Food: Never True Current Housing: I Have Housing Concerned About Future Housing: No Difficulty Paying Gas/Electric Bills: No Difficulty Paying for Meds: No Currently Unemployed: No Education: Master's Degree or Higher Difficulty w/ Childcare or Family Care: No Spiritual care concerns: No Meds Home Medications and Allergies Home Medications Medication Instructions Recorded Confirmed Type carbidopa 10 mg-levodopa 100 mg 1 tablet PO TID 06/25/24 06/25/24 History tablet donepezil 5 mg tablet 5 mg PO DAILY 06/25/24 06/25/24 History linaclotide 290 mcg capsule 290 mcg PO DAILY 06/25/24 06/25/24 History (Linzess) nebivolol 10 mg tablet 10 mg PO DAILY 06/25/24 06/25/24 History Allergies Allergy/AdvReac Type Severity Reaction Status Date / Time Sulfa (Sulfonamide AdvReac Nausea and Verified 06/25/24 00:50 Antibiotics) Vomiting Vital Signs Vital Signs - 24 hr 06/24/24 20:51 06/24/24 21:10 06/24/24 21:16 Temperature 36.4 C L Pulse Rate 152 H 155 H 122 H Respiratory Rate 16 Blood Pressure 90/64 L 93/70 L 86/68 L Pulse Oximetry 100 Oxygen Delivery Room Air Oxygen Flow Rate 06/24/24 21:39 06/24/24 21:21 06/24/24 21:18 Temperature Pulse Rate 132 H 124 H 120 H Respiratory Rate 16 17 Blood Pressure 92/68 L 86/68 L 87/67 L Pulse Oxim
--- NOTE | 2024-06-25 14:11 | PM.TDS ---
Transfer Discharge Sum: Prov Provider Date of admission: 06/25/24 08:29 Primary care physician: Marquis Constantino, Admitting clinician: Nhung Roth DO Consults: 06/25/24 Consult to Physician Routine Comment: Called exchange and notified them of consult Consulting Provider: Maria Guadalupe Jacobsen Reason for consultation: elevated troponin Has provider been notified: Yes Receiving physician/facility: [facility]. DS: Admitting Diagnosis Discharge Date 06/25/2024 Admitting Diagnosis Shortness of breath DS: Discharge Diagnosis Discharge Diagnosis Plan Cardiology was called from ER, and the public speaking coach did not suspect ST-elevation, patient initial trope 0.112, 8.030, 22.800, 22.800, public speaking coach is consulted, patient with history of severe aortic stenosis and has been seen by thoracic surgeon, Dr. Welsh spoke with Dr Weber patient primary public speaking coach at the [facility], patient will be transferred to the hospital for further care . Discuss with Kelsea Maldonado APN, hospitalist at the hospital and has accepted the patient. Transfer Discharge Sum: Med Medications Active and Home Medications: Home Medications carbidopa 10 mg-levodopa 100 mg tablet 1 tablet PO TID 06/25/24 [History Confirmed 06/25/24] donepezil 5 mg tablet 5 mg PO DAILY 06/25/24 [History Confirmed 06/25/24] linaclotide 290 mcg capsule (Linzess) 290 mcg PO DAILY 06/25/24 [History Confirmed 06/25/24] nebivolol 10 mg tablet 10 mg PO DAILY 06/25/24 [History Confirmed 06/25/24] Active Medications Amiodarone HCl (Amiodarone Hcl 200 Mg Tablet) 200 mg PO BID DOM Aspirin (Aspirin 81 Mg Enteric Tablet) 81 mg PO QAM DOM Atorvastatin Calcium (Atorvastatin 40 Mg Tablet) 40 mg PO DAILY DOM Carbidopa/Levodopa (Carbidopa/Levodopa 10/100 Mg Tablet) 1 tablet PO TIDWM DOM Last Admin: 06/25/24 12:09 Dose: 1 tablet Heparin Sodium (Porcine) (Heparin Sodium 5,000 Units/Ml Vial) 4,000 units IV PUSH PRN PRN PRN Reason: aPTT less than 55 seconds Heparin Sodium (Porcine) (Heparin Sodium 5,000 Units/Ml Vial) 3,500 units IV PUSH PRN PRN PRN Reason: aPTT 55 - 70 seconds Heparin Sodium/Dextrose (Heparin Sodium/D5w 100 Units/Ml) 25,000 units in 250 mls @ 8 mls/hr IV CONT .Q24H [facility]; Protocol Last Admin: 06/25/24 11:54 Dose: 800 units/hr, 8 mls/hr Linaclotide (Linaclotide 145 Mcg Capsule) 290 mcg PO DAILY@0630 DOM Nebivolol (Nebivolol Hcl 5 Mg Tablet) 10 mg PO DAILY [facility] Last Admin: 06/25/24 09:56 Dose: 10 mg Perflutren Lipid Microsphere (Perflutren Lipid Microspheres 1.5 Ml Vial Diluted To 10 Ml Total Volume) 0 ml IV PUSH ONCE PRN; Protocol PRN Reason: adequate visualization Stop: 06/28/24 11:42 Transfer Discharge Sum: Hosp Hospital Course Hospital course: Sanket Wick is a 83 year old male Time Spent with Patient Time attestation: Total time spent providing and/or coordinating transfer services: Exam Narrative: Patient is comfortable, NAD HEENT: eyes are clear and none icteric LUNGS:CTA HEART: RR S1S2, systolic murmur ABD: BS+, Soft and nontender Lower extremities: no edema SKIN: nonjaundiced Neuro: grossly intact. DS: Data Data Completed and Pending Labs on day of discharge: Labs from last 24 hours 06/25/24 06/25/24 06/25/24 11:32 06:40 06:12 WBC RBC Hgb Hct MCV MCH MCHC RDW Plt Count MPV Immature Gran % (Auto) Neut % (Auto) Lymph % (Auto) Mcmullen % (Auto) Eos % (Auto) Baso % (Auto) Lymph # (Auto) Mcmullen # (Auto) Eos # (Auto) Baso # (Auto) Abs Immat Gran (auto) Absolute Neuts (auto) Absolute Nucleated RBC Nucleated RBC % Platelet Estimate % Immature Plt Fraction Poikilocytosis Ovalocytes Schistocytes PT INR APTT 99.8 H Sodium Potassium Chloride Carbon Dioxide Anion Gap BUN Creatinine Estim Creat Clear Calc Estimated GFR Glucos
[2024-06-25] MEDS: BISACODYL 5 MG TABLET EC PO (14:41)
[2024-06-25] MEDS: PERFLUTREN LIPID MICROSPHERES 1.5 ML VIAL DILUTED TO 10 ML TOTAL VOLUME IV PUSH (15:23)
--- NOTE | 2024-06-25 15:27 | IVDEFINITY ---
Prior to administration of IV Definity the patient was educated on the risks and benefits of the imaging enhancing agent including potential adverse side effects. The patient verbalized understanding. Allergies were verified. No exclusion criteria were identified and at least one of the following inclusion criteria were met: 1) physician request, 2) patient technically difficult to image (per the [place] [employer] guidelines of two or more segments not discernable within the apical view), or 3) questionable left ventricular function. ?
[2024-06-25] MEDS: AMIODARONE HCL 200 MG TABLET PO (16:57)
== END 2024-06-25 18:40 | disposition short-term general hospital (02) | DRG 310 ==
LOC: ANHED 06-25 00:11 → ANHIMU 06-25 00:44
PROVIDERS: Admitting Provider Internal Medicine; Emergency Provider Emergency Medicine; PCP Internal Medicine; Visit Provider Family Medicine
DX: I48.20 Chronic atrial fibrillation, unspecified (principal); I35.2 Nonrheumatic aortic (valve) stenosis with insufficiency; R79.89 Other specified abnormal findings of blood chemistry
CPT/HCPCS: 36415; 71045; 73080; 80053; 81001; 83690; 83880; 84484; 85025; 85055; 85610; 85730; 93005; 96361; 96365; 96366; 96367; 96375; 99285; A9270; C8929; G0378; J0282; J1644; J7030; Q9957